=== PATIENT | female | born 1970 | race Two or more races ===

== ENCOUNTER 2019-01-05 14:35 | Outpatient (CLI) | payer OTHER | END 2019-01-05 16:37 | disposition home or self-care (01) | LOC: MAMO-SONO 14:35 | DX: Z12.31 Encounter for screening mammogram for malignant neoplasm of breast (principal); Z87.898 Personal history of other specified conditions; N64.4 Mastodynia; N60.11 Diffuse cystic mastopathy of right breast; N60.12 Diffuse cystic mastopathy of left breast; N83.00 Follicular cyst of ovary, unspecified side; N80.8 Other endometriosis; D25.9 Leiomyoma of uterus, unspecified ==

== ENCOUNTER 2021-07-09 09:43 | Outpatient (CLI) | payer OTHER | END 2021-07-09 11:16 | disposition home or self-care (01) | LOC: MAMO-SONO 09:43 | DX: Z12.31 Encounter for screening mammogram for malignant neoplasm of breast (principal) ==

== ENCOUNTER 2021-07-09 11:32 | Outpatient (CLI) | payer OTHER | END 2021-07-09 11:34 | disposition home or self-care (01) | LOC: NUCLEAR 11:32 | DX: D25.9 Leiomyoma of uterus, unspecified (principal); Z12.31 Encounter for screening mammogram for malignant neoplasm of breast; M85.9 Disorder of bone density and structure, unspecified ==

== ENCOUNTER 2023-12-02 16:05 | Outpatient (CLI) | payer OTHER | END 2023-12-02 16:12 | disposition home or self-care (01) | LOC: MAMO-SONO 16:05 | DX: N64.4 Mastodynia (principal); Z12.31 Encounter for screening mammogram for malignant neoplasm of breast ==